=== PATIENT | male | born 1985 ===

== ENCOUNTER 2024-08-23 12:16 | Inpatient (IN) | payer MEDICAID, OTHER ==
[~2024-08-23] VITALS: Ht 177.8 cm; Wt 100.7 kg
[2024-08-23 12:59] LABS: COVID AG,FIA SOURCE NASAL SWAB
[2024-08-23 13:46] LABS: SARS-COV2 (COVID) ANTIGEN,FIA Negative (Negative)
[2024-08-23] MEDS ORDERED: LORazepam 2 MG TABLET PO PRN (14:00)
[2024-08-23] MEDS: QUEtiapine FUMARATE 100 MG TABLET PO PRN (15:35)
[2024-08-23] MEDS: ACETAMINOPHEN 500 MG TABLET PO ONE (15:35)
[2024-08-23 16:07] LABS: BASOPHILS % (AUTO) 0.9 % (0.0-2.0); EOSINOPHILS % (AUTO) 1.3 % (1.0-6.0); HEMATOCRIT 46.7 % (41-53); HEMOGLOBIN 15.5 g/dL (13.5-17.5); LYMPHOCYTES # (AUTO) 1.4 K/uL (1.0-4.8); LYMPHOCYTES % (AUTO) 16.8 % (22.0-44.0); MEAN CORPUSCULAR HEMOGLOBIN 28.3 pg (26.0-34.0); MEAN CORPUSCULAR HGB CONC 33.2 G/dL (31.0-37.0); MEAN CORPUSCULAR VOLUME 85 fL (80-100); MONOCYTES # (AUTO) 0.7 K/uL (0.1-1.0); MONOCYTES % (AUTO) 8.8 % (2.0-9.0); NEUTROPHILS # (AUTO) 5.9 K/uL (1.8-7.7); NEUTROPHILS % (AUTO) 72.2 % (40.0-70.0); PLATELET COUNT (AUTO) 196 K/uL (150-450); RED BLOOD CELL COUNT(AUTO) 5.47 MIL/uL (4.50-5.90); RED CELL DISTRIBUTION WIDTH 13.4 % (11.5-14.5); WHITE BLOOD COUNT (AUTO) 8.2 K/uL (4.5-11.0)
[2024-08-23 16:16] LABS: ANION GAP 7 mmol/L (8-16); CALCIUM, TOTAL 9.2 mg/dL (8.8-10.5); CARBON DIOXIDE 31 mmol/L (22-29); CHLORIDE 95 mmol/L (98-107); CREATININE 1.49 mg/dL (0.60-1.30); GLOMERULAR FILTR. RATE CALC 53 mL/min (>60); GLUCOSE,RANDOM 206 mg/dL (70-110); SODIUM SERUM 133 mmol/L (136-145); UREA NITROGEN, BLOOD 17 mg/dL (7-18)
[2024-08-23 16:19] LABS: ALCOHOL, BLOOD (SERUM) < 3 mg/dL (0-10)
[2024-08-23] MEDS ORDERED: DiphenhydrAMINE HCL 50 MG/ML VIAL IM ONE (18:00)
[2024-08-23] MEDS: LORazepam 2 MG/ML VIAL IM ONE (18:06)
[2024-08-23] MEDS: DiphenhydrAMINE HCL 50 MG/ML VIAL IM ONE (18:07)
[2024-08-23] MEDS: HALOPERIDOL LACTATE 5 MG/ML VIAL IM ONE (18:07)
[2024-08-23] MEDS ORDERED: LOPERAMIDE HCL 2 MG CAPSULE PO PRN (20:45)
[2024-08-23] MEDS ORDERED: BACITRACIN 28 GM OINTMENT TP PRN (20:45)
[2024-08-23] MEDS ORDERED: IBUPROFEN 600 MG TABLET PO PRN (20:45)
[2024-08-23] MEDS ORDERED: MAGNESIUM HYDROXIDE SUSPENSION 30 ML UDCUP PO PRN (20:45)
[2024-08-23] MEDS ORDERED: BENZOCAINE/MENTHOL LOZENGE PO PRN (20:45)
[2024-08-23] MEDS ORDERED: OMEPRAZOLE 20 MG CAPSULE PO PRN (20:45)
[2024-08-23] MEDS ORDERED: DOCUSATE SODIUM 100 MG CAPSULE PO PRN (20:45)
[2024-08-23] MEDS ORDERED: ONDANSETRON 4 MG TABLET PO PRN (20:45)
[2024-08-23] MEDS ORDERED: ALBUTEROL SULFATE HFA 90 MCG/PUFF 8 GM INHALER IH PRN (20:45)
[2024-08-23] MEDS ORDERED: CloNIDine HCL 0.1 MG TABLET PO PRN (20:45)
[2024-08-23] MEDS ORDERED: MAG HYDROX/ALUMINUM HYD/SIMETH ES 30 ML SUSPENSION UDCUP PO PRN (20:45)
[2024-08-23] MEDS ORDERED: PETROLATUM,WHITE 28 GM JELLY TP PRN (20:45)
[2024-08-23] MEDS: POTASSIUM CHLORIDE 20 MEQ ER TABLET PO ONE (21:13)
[2024-08-23] MEDS: SODIUM CHLORIDE 0.9% 2,000 ML IV ONE (21:13)
[2024-08-24 01:13] VITALS: O2SAT 98
[2024-08-24 02:56] LABS: GLUCOMETER DEV NAME(LOC) BV3N.2; GLUCOSE,POINT OF CARE 189 MG/DL (70-110)
[2024-08-24 04:22] VITALS: BP 109/67; PULSE 100; RESP 18; TEMP 97.8; O2SAT 100
[2024-08-24 08:32] VITALS: BP 120/73; PULSE 71; RESP 18; TEMP 97.1; O2SAT 99
[2024-08-24] MEDS: RisperiDONE 2 MG TABLET PO SCH (11:53)
[2024-08-24 20:00] VITALS: BP 99/60; PULSE 69; RESP 16; TEMP 97; O2SAT 98
[2024-08-25 09:12] LABS: HEMOGLOBIN A1C 6.4 % (3.8-5.6)
[2024-08-25 09:19] VITALS: BP 123/73; PULSE 89; RESP 18; TEMP 97.7; O2SAT 99
[2024-08-25 09:35] LABS: ALANINE AMINOTRANSFERASE 36 U/L (12-78); ALBUMIN 3.3 g/dL (3.4-5.0); ALKALINE PHOSPHATASE 77 U/L (46-116); ANION GAP 7 mmol/L (8-16); ASPARTATE AMINOTRANSFERASE 33 U/L (15-37); BILIRUBIN,TOTAL 0.2 mg/dL (0.1-1.0); CALCIUM, TOTAL 8.4 mg/dL (8.8-10.5); CARBON DIOXIDE 31 mmol/L (22-29); CHLORIDE 104 mmol/L (98-107); CHOL/HDL RATIO 3.4 (4.2-7.3); CHOLESTEROL 131 mg/dL (131-200); CREATININE 0.81 mg/dL (0.60-1.30); GLOMERULAR FILTR. RATE CALC > 60 mL/min (>60); GLUCOSE,RANDOM 134 mg/dL (70-110); HDL CHOLESTEROL 38 mg/dL (40-60); LDL CHOL (CALC.) 42 mg/dL (0-130); POTASSIUM 3.6 mmol/L (3.5-5.1); SODIUM SERUM 142 mmol/L (136-145); THYROID STIMULATING HORMONE 1.92 uIU/mL (0.36-3.74); TOTAL PROTEIN, SERUM 6.4 g/dL (6.4-8.2); TRIGLYCERIDES 253 mg/dL (15-150); UREA NITROGEN, BLOOD 10 mg/dL (7-18)
[2024-08-25 20:08] VITALS: BP 110/61; PULSE 89; RESP 18; TEMP 97.8; O2SAT 96
[2024-08-26 08:43] VITALS: BP 133/89; PULSE 95; RESP 17; TEMP 98.2; O2SAT 97
[2024-08-26 20:43] VITALS: BP 100/65; PULSE 100; RESP 17; TEMP 97; O2SAT 96
[2024-08-27 08:23] VITALS: BP 124/92; PULSE 92; RESP 18; TEMP 98.1; O2SAT 96
[2024-08-27 20:10] VITALS: BP 152/89; PULSE 94; RESP 18; TEMP 97.2; O2SAT 91
[2024-08-28 08:15] VITALS: BP 137/80; PULSE 91; RESP 18; TEMP 97.9; O2SAT 98
[2024-08-28 20:37] VITALS: BP 113/65; PULSE 90; RESP 16; TEMP 97.1; O2SAT 96
[2024-08-29] MEDS: ZOLPIDEM TARTRATE 10 MG TABLET PO PRN (01:44)
[2024-08-29 01:45] VITALS: BP 127/90; PULSE 103; RESP 17; TEMP 96.8; O2SAT 98
[2024-08-29 08:28] VITALS: BP 131/76; PULSE 106; RESP 18; TEMP 97.8; O2SAT 99
[2024-08-29 20:00] VITALS: BP 119/72; PULSE 101; RESP 17; TEMP 97.5; O2SAT 98
[2024-08-29] MEDS: TraZODone HCL 50 MG TABLET PO SCH (20:32)
[2024-08-30 08:13] VITALS: BP 131/73; PULSE 111; RESP 16; TEMP 97.9; O2SAT 95
[2024-08-30 20:15] VITALS: BP 121/84; PULSE 87; RESP 17; TEMP 97.3; O2SAT 96
[2024-08-31 08:34] VITALS: BP 122/88; PULSE 82; RESP 17; TEMP 97.4; O2SAT 99
[2024-08-31 20:07] VITALS: BP 125/78; PULSE 100; RESP 16; TEMP 97.2; O2SAT 98
[2024-09-01] MEDS: MetFORMIN HCL 500 MG TABLET PO SCH (06:15)
[2024-09-01 14:11] VITALS: BP 133/85; PULSE 92; RESP 18; TEMP 97.8; O2SAT 98
[2024-09-01 20:45] VITALS: BP 112/74; PULSE 94; RESP 18; TEMP 97.9; O2SAT 97
[2024-09-02 08:13] VITALS: BP 126/72; PULSE 94; RESP 16; TEMP 98.3; O2SAT 96
[2024-09-02 21:17] VITALS: BP 122/75; PULSE 82; RESP 17; TEMP 98.2; O2SAT 96
[2024-09-03 08:11] VITALS: BP 130/84; PULSE 89; RESP 17; TEMP 97.9; O2SAT 98
[2024-09-03 10:02] VITALS: RESP 18; O2SAT 98
[2024-09-03] MEDS: ACETAMINOPHEN 325 MG TABLET PO PRN (10:02)
[2024-09-03 11:02] VITALS: RESP 17; O2SAT 98
[2024-09-03 20:20] VITALS: BP 126/78; PULSE 86; RESP 16; TEMP 97.8; O2SAT 99
[2024-09-04 08:40] VITALS: BP 122/68; PULSE 88; RESP 18; TEMP 97.6; O2SAT 100
[2024-09-04 20:42] VITALS: BP 127/72; PULSE 95; RESP 16; TEMP 97.6; O2SAT 97
[2024-09-05 08:40] VITALS: BP 124/69; PULSE 96; RESP 17; TEMP 97.9; O2SAT 98
[2024-09-05] MEDS ORDERED: METF-1211 PO (15:13)
[2024-09-05] MEDS ORDERED: RISP-32 PO (15:13)
[2024-09-05] MEDS ORDERED: TRAZ-252 PO (15:13)
== END 2024-09-05 14:10 | disposition home or self-care (01) | DRG 750 ==
LOC: EMS 12:16 → B3A 16:10 → B2S 08-25 11:44
PROVIDERS: ADMIT Psychiatry & Neurology Psychiatry; ATTEND Psychiatry & Neurology Psychiatry
PROC: GZ52ZZZ Individual Psychotherapy, Cognitive (ICD-10-PCS; principal; 2024-08-24)
PROC: GZHZZZZ Group Psychotherapy (ICD-10-PCS; 2024-08-24)
DX: F20.0 Paranoid schizophrenia (principal); N17.9 Acute kidney failure, unspecified; E87.1 Hypo-osmolality and hyponatremia; Z20.822 Contact with and (suspected) exposure to COVID-19; F32.A Depression, unspecified; G47.00 Insomnia, unspecified; R73.03 Prediabetes; K59.00 Constipation, unspecified; E87.6 Hypokalemia; Z79.899 Other long term (current) drug therapy; Z91.148 Patient's other noncompliance with medication regimen for other reason
CPT/HCPCS: 80048; 80053; 80061; 82962; 83036; 84443; 85025; 93005; G0480; J1200; J1630; J2060; J7030